=== PATIENT | female | born 1995 | race African-American/Black ===

== ENCOUNTER 2025-06-30 08:15 | Emergency (ER) | payer SELFPAY ==
[~2025-06-30] VITALS: Ht 165.1 cm; Wt 63.0 kg
[2025-06-30 08:38] VITALS: O2SAT 99
[2025-06-30] MEDS: HYDROCODONE/ACETAMINOPHEN 5/325MG TABLET PO STA (09:01)
[2025-06-30] MEDS ORDERED: OXYC-100 MT (09:14)
[2025-06-30 09:59] VITALS: BP 122/85; PULSE 64; RESP 18; TEMP 37.1; O2SAT 100
== END 2025-06-30 10:01 | disposition home or self-care (01) ==
LOC: ER 08:16
DX: S52.501A Unspecified fracture of the lower end of right radius, initial encounter for closed fracture (principal); Z88.6 Allergy status to analgesic agent; W01.0XXA Fall on same level from slipping, tripping and stumbling without subsequent striking against object, initial encounter; Y93.89 Activity, other specified; Y92.89 Other specified places as the place of occurrence of the external cause; Y99.8 Other external cause status
CPT/HCPCS: 29125; 73110; 81025; 99283

== ENCOUNTER 2025-07-26 13:17 | Emergency (ER) | payer SELFPAY ==
[~2025-07-26] VITALS: Ht 165.1 cm; Wt 64.0 kg
[~2025-07-26 13:17] MED LIST: OXYC-100 MT
[2025-07-26 13:26] VITALS: BP 131/82; PULSE 79; RESP 18; TEMP 37.1; O2SAT 100
[2025-07-26] MEDS ORDERED: ACET-2708 MT (15:43)
[2025-07-26] MEDS: HYDROCODONE/ACETAMINOPHEN 5/325MG TABLET PO ONE (16:06)
== END 2025-07-26 16:13 | disposition home or self-care (01) ==
LOC: ER 13:17
DX: S52.611A Displaced fracture of right ulna styloid process, initial encounter for closed fracture (principal); S52.501A Unspecified fracture of the lower end of right radius, initial encounter for closed fracture; Z88.6 Allergy status to analgesic agent; W19.XXXA Unspecified fall, initial encounter; Y93.89 Activity, other specified; Y92.89 Other specified places as the place of occurrence of the external cause; Y99.8 Other external cause status
CPT/HCPCS: 99283; 73110; 29125; A6449

== ENCOUNTER 2025-09-20 11:45 | Emergency (ER) | payer SELFPAY ==
[~2025-09-20] VITALS: Ht 162.6 cm; Wt 64.0 kg
[~2025-09-20 11:45] MED LIST changes: +ACET-2708 MT
[2025-09-20 11:54] VITALS: O2SAT 98
[2025-09-20 12:42] LABS: CLARITY URINE CLOUDY (CLEAR); COLOR URINE DARK YELLOW (YELLOW); GLUCOSE URINE NEGATIVE (NEGATIVE); KETONES URINE TRACE (NEGATIVE); LEUKOCYTE ESTERASE URINE TRACE (NEGATIVE); NITRITE URINE NEGATIVE (NEGATIVE); OCCULT BLOOD URINE NEGATIVE (NEGATIVE); PH URINE 7.5 (4.5-8.0); PROTEIN URINE 1+ (NEGATIVE); SPECIFIC GRAVITY URINE 1.025 (1.005-1.030); UROBILINOGEN URINE 1.0 E.U./dL (0.2-1.0)
[2025-09-20 12:44] LABS: BASOPHILS % 1.0 % (0.0-2.0); EOSINOPHILS % 2.0 % (0.0-5.0); HEMATOCRIT. 37.7 % (36.0-48.0); HEMOGLOBIN. 12.6 g/dL (12.0-16.0); LYMPHOCYTES % 26.4 % (20.0-50.0); MEAN PLATELET VOLUME 9.3 fl (7.4-10.4); MONOCYTES % 8.3 % (2.0-8.0); NEUTROPHILS % 62.3 % (40.0-76.0); PLATELET 266 x1000/uL (130-400); RED BLOOD CELL COUNT 4.57 mill/uL (4.2-5.4); RED CELL DISTRIBUTION WIDTH 13.5 % (11.6-14.6)
[2025-09-20 12:52] LABS: BACTERIA URINE 1+; RBC URINE 0-2 /hpf (0-2); SQUAMOUS EPITHELIAL CELL URINE 3+ /lpf (RARE/1+); YEAST URINE NONE SEEN
[2025-09-20 12:55] LABS: CREATININE 0.7 mg/dL (0.6-1.0); UREA NITROGEN BLOOD 5 mg/dL (9-23)
[2025-09-20] MEDS ORDERED: T3 PO (14:23)
[2025-09-20 14:30] VITALS: BP 110/73; PULSE 76; RESP 16; TEMP 37.1; O2SAT 99
[2025-09-20] MEDS: ACETAMINOPHEN WITH CODEINE 300/30MG TABLET PO ONE (14:34)
== END 2025-09-20 14:35 | disposition home or self-care (01) ==
LOC: ER 13:32
DX: R10.12 Left upper quadrant pain (principal); R07.89 Other chest pain; Z88.6 Allergy status to analgesic agent
CPT/HCPCS: 36415; 71101; 80048; 81003; 81025; 85025; 99284